=== PATIENT | male | born 2000 | race Caucasian/White ===

== ENCOUNTER 2024-11-16 14:12 | Emergency (ER) | payer SELFPAY ==
[~2024-11-16] VITALS: Ht 167.6 cm; Wt 76.0 kg
[2024-11-16 14:44] VITALS: O2SAT 97
[2024-11-16] MEDS: ONDANSETRON HCL 4MG/2ML INJ IV ONE (19:55)
[2024-11-16] MEDS: KETOROLAC 15MG/ML VIAL IV ONE (19:55)
[2024-11-16] MEDS: SODIUM CHLORIDE 0.9% 1,000 ML IV ONE (19:55)
[2024-11-16 20:25] LABS: BASOPHILS % 0.2 % (0.0-2.0); EOSINOPHILS % 0.0 % (0.0-5.0); HEMATOCRIT. 40.6 % (42.0-52.0); HEMOGLOBIN. 13.8 g/dL (14.0-18.0); LYMPHOCYTES % 8.3 % (20.0-50.0); MEAN PLATELET VOLUME 8.4 fl (7.4-10.4); MONOCYTES % 13.5 % (2.0-8.0); NEUTROPHILS % 78.0 % (40.0-76.0); PLATELET 187 x1000/uL (130-400); RED BLOOD CELL COUNT 4.63 mill/uL (4.7-6.1); RED CELL DISTRIBUTION WIDTH 13.6 % (11.6-14.6)
[2024-11-16 20:40] LABS: CREATININE 1.0 mg/dL (0.6-1.3); TROPONIN I HIGH SENSITIVITY < 4 ng/L (3.0-53); UREA NITROGEN BLOOD 10 mg/dL (9-23)
[2024-11-16 20:42] LABS: ASPARTATE AMINOTRANSFERASE 20 IU/L (<34)
[2024-11-16 20:43] LABS: BILIRUBIN DIRECT 0.4 mg/dL (<=3.0); BILIRUBIN TOTAL 1.2 mg/dL (0.1-1.0); PROTEIN TOTAL 7.1 g/dL (6.0-8.3)
[2024-11-16 21:28] LABS: TROPONIN I HIGH SENSITIVITY < 4 ng/L (3.0-53)
[2024-11-16 21:51] LABS: CLARITY URINE CLEAR (CLEAR); COLOR URINE YELLOW (YELLOW); GLUCOSE URINE NEGATIVE (NEGATIVE); KETONES URINE 2+ (NEGATIVE); LEUKOCYTE ESTERASE URINE NEGATIVE (NEGATIVE); NITRITE URINE NEGATIVE (NEGATIVE); OCCULT BLOOD URINE NEGATIVE (NEGATIVE); PH URINE >=9.0 (4.5-8.0); PROTEIN URINE 1+ (NEGATIVE); SPECIFIC GRAVITY URINE 1.021 (1.005-1.030); UROBILINOGEN URINE 2.0 E.U./dL (0.2-1.0)
[2024-11-16 21:53] LABS: RBC URINE NONE SEEN /hpf (0-2)
[2024-11-16 21:54] LABS: BACTERIA URINE RARE; SQUAMOUS EPITHELIAL CELL URINE RARE /lpf (RARE/1+)
[2024-11-16 21:59] LABS: *AMPHETAMINES SCREEN URINE NEGATIVE (NEGATIVE); *BARBITURATES SCREEN URINE NEGATIVE (NEGATIVE); *BENZODIAZEPINES SCREEN URINE NEGATIVE (NEGATIVE); *COCAINE SCREEN URINE NEGATIVE (NEGATIVE); CANNABINOID URINE SCREEN PRESUMPTIVE POSITIVE (NEGATIVE); ECSTASY MDMA SCREEN URINE NEGATIVE (NEGATIVE); METHADONE URINE SCREEN NEGATIVE (NEGATIVE); OPIATES URINE SCREEN NEGATIVE (NEGATIVE); PHENCYCLIDINE URINE SCREEN NEGATIVE (NEGATIVE)
[2024-11-17] MEDS ORDERED: FAMO-135 MT
[2024-11-17] MEDS ORDERED: CEFP200T13 MT
[2024-11-17 00:22] VITALS: BP 109/65; PULSE 73; RESP 16; TEMP 36.9; O2SAT 99
== END 2024-11-17 00:32 | disposition home or self-care (01) ==
LOC: ER 14:12
DX: N12 Tubulo-interstitial nephritis, not specified as acute or chronic (principal); M79.602 Pain in left arm; M79.601 Pain in right arm; R20.0 Anesthesia of skin; Z79.899 Other long term (current) drug therapy
CPT/HCPCS: 80076; 80305; 80048; 81003; 80320; 83690; 85025; 84484; 36415; 74176; 93005; 96361; 96374; 96375; 99285; J1885; J2405; J7030; Z7610; 96376; G0480